=== PATIENT | male | born 1940 | race Caucasian/White ===

== ENCOUNTER → 2023-06-29 11:55 | Outpatient (CLI) | payer MEDICARE, SELFPAY ==
--- NOTE | ~2023-06-29 | MR_ITS ---
MRI of the lumbar spine Clinical History: Radiculopathy Technique: Axial T2-weighted and gradient images, and sagittal T1-weighted, T2-weighted, and STIR charles ges were acquired. Findings: There is scoliosis at the thoracolumbar junction. No fracture identified. There is 5 mm ret rolisthesis of L1 over L2. There is 2 mm retrolisthesis of L2 over L3. There is 2 mm anterolisthesis of L4 over L5. There are reactive marrow signal changes in the lower thoracic and upper lumbar spine related to underlying degenerative disc disease. At L1-L2, there is severe degenerative disc narrowing. There is minimal disc bulge with mild facet ar thropathy. No central canal stenosis. There is mild bilateral neural foraminal narrowing. At L2-L3, there is moderate degenerative disc narrowing with minimal disc bulge. There is severe face t arthropathy with left lateral recess stenosis. No central canal stenosis. There is severe left neur al foraminal narrowing. Right neural foramen preserved. At L3-L4, there is mild disc bulge with severe facet arthropathy. No central canal stenosis. There is preservation of the neural foramina. At L4-L5, there is mild diffuse disc bulge with moderate to severe facet arthropathy. No central burton l stenosis. There is mild left neural foraminal narrowing. At L5-S1, there is disc bulge with moderate facet arthropathy. There are disc herniations in the bila teral paracentral regions extending inferiorly. There is mild to moderate bilateral neural foraminal narrowing. No remigio central canal stenosis. 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 Moderate to advanced degenerative spondylosis at L2-L3, as detailed above. Additional mild degenerative changes, as above. Scoliotic change at the thoracolumbar junction with multiple listheses in the lumbar spine, as detail ed above. Reviewed, dictated and finalized at location . 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 Moderate to advanced degenerative spondylosis at L2-L3, as detailed above. Additional mild degenerative changes, as above. Scoliotic change at the thoracolumbar junction with multiple listheses in the l umbar spine, as detailed above.
== END ==
PROVIDERS: PCP Internal Medicine; Visit Provider Pain Medicine Pain Medicine
DX: M47.26 Other spondylosis with radiculopathy, lumbar region (principal); M51.36 Other intervertebral disc degeneration, lumbar region
CPT/HCPCS: 72148